=== PATIENT | female | born 1965 | race Hispanic/Latino ===

== ENCOUNTER 2017-08-21 11:26 | Emergency (ER) | payer MEDICAID ==
[2017-08-21 11:41] VITALS: BP 134/74
== END 2017-08-21 12:18 | disposition left against medical advice (07) ==
LOC: ED 11:26
DX: J02.9 Acute pharyngitis, unspecified (principal); Z53.21 Procedure and treatment not carried out due to patient leaving prior to being seen by health care provider

== ENCOUNTER 2017-12-25 22:49 | Inpatient (IN) | payer MEDICAID ==
[2017-12-26 00:38] LABS: Basophils % (Auto) 0.6 % (0.0-1.8); Eosinophils # (Auto) 0.3 K/mm3 (0.0-0.4); Eosinophils % (Auto) 3.6 % (0.0-4.3); Hematocrit 33.6 % (30.3-42.9); Hemoglobin 12.1 gm/dl (10.1-14.3); Lymphocytes # (Auto) 3.7 K/mm3 (1.2-5.4); Lymphocytes % (Auto) 46.6 % (13.4-35.0); Mean Corpuscular HGB Conc 36 % (30-34); Mean Corpuscular Hemoglobin 30 pg (28-32); Mean Corpuscular Volume 83 fl (79-97); Monocytes # (Auto) 0.6 K/mm3 (0.0-0.8); Monocytes % (Auto) 8.1 % (0.0-7.3); Platelet Count 334 K/mm3 (140-440); Red Blood Count 4.08 M/mm3 (3.65-5.03); Red Cell Distribution Width 14.8 % (13.2-15.2)
--- NOTE | 2017-12-26 00:48 | Cat Scan Report ---
FINAL REPORT PROCEDURE: CT HEAD/BRAIN WO CON TECHNIQUE: Computerized tomography of the head was performed without contrast material. HISTORY: neuro deficits < 6hrs or sx present upon awakening COMPARISON: No prior studies are available for comparison. FINDINGS: Skull and scalp: Normal. Paranasal sinuses: Normal. Ventricles and subarachnoid spaces: Normal. Cerebrum: No evidence of hemorrhage, acute infarction or mass . Cerebellum and brainstem: No evidence of hemorrhage, acute infarction or mass. Vasculature: Normal. Comments: None. IMPRESSION: There is no evidence of an acute intracranial process
[2017-12-26 00:49] LABS: INR 0.89 (0.87-1.13); Partial Thromboplastin Time 28.9 Sec. (24.2-36.6)
[2017-12-26 00:51] LABS: BUN/Creatinine Ratio 9; Blood Urea Nitrogen 9 mg/dL (7-17); Calcium 8.8 mg/dL (8.4-10.2); Hemolysis Index 2
--- NOTE | 2017-12-26 00:59 | Emergency Department Report ---
- General Chief complaint: Chest Pain Stated complaint: HEAD/NECK/CHEST PAIN Time Seen by Provider: 12/26/17 00:35 Source: patient, EMS Mode of arrival: Ambulatory Limitations: No Limitations - History of Present Illness Initial comments: She is a 52-year-old female that presents emergency room with chest pain 1 hour. Patient also reports having numbness tingling in both arms and legs. Patient states she is also having a bad headache. Patient states she lost the ability to speak for approximately 45-50 minutes. Patient states her blood pressure really high school and on and she took a blood pressure medication and her ability to speak and back. Patient denies nausea and vomiting and shortness of breath. Patient states the chest pain is a pressure in her central chest and non-radiating. Patient states chest pain and headache are better with rest and worse with exertion. Patient states that she never lost ability to move her arms and legs. MD Complaint: generalized weakness -: Sudden - Related Data Allergies Allergy/AdvReac Type Severity Reaction Status Date / Time Sulfa (Sulfonamide Allergy Shortness Verified 08/21/17 11:36 Antibiotics) of Breath sulfamethoxazole Allergy Unknown Verified 12/25/17 23:42 [From Bactrim] trimethoprim [From Bactrim] Allergy Unknown Verified 12/25/17 23:42 ED Review of Systems ROS: Stated complaint: HEAD/NECK/CHEST PAIN Other details as noted in HPI Constitutional: denies: chills, fever Eyes: denies: eye pain, eye discharge, vision change ENT: denies: ear pain, throat pain Respiratory: denies: cough, shortness of breath, wheezing Cardiovascular: chest pain. denies: palpitations Endocrine: no symptoms reported Gastrointestinal: denies: abdominal pain, nausea, diarrhea Genitourinary: denies: urgency, dysuria, discharge Musculoskeletal: denies: back pain, joint swelling, arthralgia Skin: denies: rash, lesions Neurological: headache. denies: weakness, paresthesias Psychiatric: denies: anxiety, depression Hematological/Lymphatic: denies: easy bleeding, easy bruising ED Past Medical Hx - Past Medical History Previous Medical History?: Yes Hx Headaches / Migraines: Yes Hx Psychiatric Treatment: Yes (Bipolar) Additional medical history: MRSA, Speech impairment, stomach ulcers - Surgical History Past Surgical History?: Yes Additional Surgical History: Tonsil removed, Tubaligation, right Carpel tunnel; surgery - Family History Family history: hypertension - Social History Smoking Status: Current Every Day Smoker Substance Use Type: None ED Physical Exam - General Limitations: No Limitations General appearance: alert, in no apparent distress - Head Head exam: Present: atraumatic, normocephalic - Eye Eye exam: Present: normal appearance - ENT ENT exam: Present: mucous membranes moist - Neck Neck exam: Present: normal inspection - Respiratory Respiratory exam: Present: normal lung sounds bilaterally. Absent: respiratory distress - Cardiovascular Cardiovascular Exam: Present: regular rate, normal rhythm. Absent: systolic murmur, diastolic murmur, rubs, gallop - GI/Abdominal GI/Abdominal exam: Present: soft, normal bowel sounds - Extremities Exam Extremities exam: Present: normal inspection - Back Exam Back exam: Present: normal inspection - Neurological Exam Neurological exam: Present: alert, oriented X3 - Psychiatric Psychiatric exam: Present: normal affect, normal mood - Skin Skin exam: Present: warm, dry, intact, normal color. Absent: rash - Assessment Assessment Interval: Baseline - Level of Consciousness 1a. Level of Consciousness: alert - LOC Questions 1b. LOC Questions: answers correctly - LOC Command 1c. LOC Commands: performs tasks correctly - Best Gaze 2. Best Gaze: normal - Visual 3. Visual: no visual loss - Facial Palsy 4. Facial Palsy: normal symmetrical movement - Motor Arm 5b. Motor Arm Right: no drift 5a. Motor Arm Left: no drift - Motor Leg 6a. Motor Leg Left: no drift 6b. Motor Leg Right: no drift - Limb Ataxia 7. Limb Ataxia: absent - Sensory 8. Sensory: normal - Best Language 9. Best Language: no aphasia - Dysarthria 10. Dysarthria: normal - Extinction and Inattention 11. Extinction/Inattention: no abnormality - Scoring Total Score: 0 Stroke Severity: No Stroke Symptoms ED Course Vital Signs 12/25/17 12/26/17 12/26/17 23:49 00:48 01:01 Temperature 97.9 F Pulse Rate 70 59 L 57 L Respiratory 20 14 12 Rate Blood Pressure 139/70 O2 Sat by Pulse 100 98 Oximetry 12/26/17 12/26/17 12/26/17 01:15 01:31 01:45 Temperature Pulse Rate 58 L 58 L 56 L Respiratory 10 L 13 15 Rate Blood Pressure 128/93 110/47 112/46 O2 Sat by Pulse 97 97 96 Oximetry 12/26/17 12/26/17 12/26/17 02:01 02:15 02:31 Temperature Pulse Rate 51 L 68 51 L Respiratory 12 13 15 Rate Blood Pressure 107/44 95/55 102/79 O2 Sat by Pulse 99 98 99 Oximetry 12/26/17 12/26/17 12/26/17 03:55 04:01 04:11 Temperature Pulse Rate 60 60 58 L Respiratory 12 11 L 14 Rate Blood Pressure 116/74 110/66 116/74 O2 Sat by Pulse 100 99 99 Oximetry 12/26/17 12/26/17 04:21 04:31 Temperature Pulse Rate 59 L 60 Respiratory 14 13 Rate Blood Pressure 113/63 113/63 O2 Sat by Pulse 98 98 Oximetry - Reevaluation(s) Reevaluation #1: Exam documented. Patient sent to CT for stat CT of head. 12/26/17 00:35 Reevaluation #2: CT head negative. We'll consult tele neuro. per clinical exam, the patient is not a candidate for TPA 12/26/17 00:43 Reevaluation #3: Discussed case with neurologist. Dr. Brenner agrees with plan of care that the patient is not a candidate for TPA, however recommends admission to the hospital and MRI 12/26/17 01:55 - Consultations Consultation #1: Hospitalist consulted for admission. Dr. Palm to admit patient. Dr. Palm to assume care. 12/26/17 02:34 ED Medical Decision Making - Lab Data Result diagrams: 12/26/17 00:28 12/26/17 00:28 - EKG Data -: EKG Interpreted by [facility] EKG shows normal: sinus rhythm, axis, intervals, QRS complexes, ST-T waves Rate: bradycardia - Radiology Data Radiology results: report reviewed nad on head ct. - Medical Decision Making Patient is a 52-year-old female that presents emergency room with complaints of chest pain and inability to speak. All symptoms have resolved on patient. Neurologist consulted and recommends admission to the hospital and at MRI. Patient to be admitted to the hospitalist service for further evaluation and treatment. - Differential Diagnosis cp. acs. tia. htn. vázquez. migraine. Critical Care Time: Yes Critical care attestation.: If time is entered above; I have spent that time in minutes in the direct care of this critically ill patient, excluding procedure time. Critical Care Time: 45 minutes for cc time. ED Disposition Clinical Impression: Weakness, TIA (transient ischemic attack) Headache Qualifiers: Headache type: unspecified Headache chronicity pattern: acute headache Intractability: not intractable Qualified Code(s): R51 - Headache Chest pain Qualifiers: Chest pain type: unspecified Qualified Code(s): R07.9 - Chest pain, unspecified Disposition: 09 OP ADMIT IP TO THIS HOSP Is pt being admited?: Yes Does the pt Need Aspirin: No Condition: Critical Time of Disposition: 02:35
[2017-12-26] MEDS ORDERED: ASPIRIN PO ONE (01:17)
--- NOTE | 2017-12-26 03:13 | History and Physical Report ---
History of Present Illness Date of examination: 12/26/17 History of present illness: 52-year-old woman with history of hypertension comes emergency room because she developed numbness on the arms, left leg and aphasia. When she arrived in the emergency room she started speaking but her speech is slurred Review of systems Constitutional: no weight loss, chills, fever Ears, eyes, nose, mouth and throat: no nasal congestion, no nasal discharge, no sinus pressure, no vision change, no red eye. Neck: No neck pain or rigidity. Cardiovascular: no chest pain, palpitations Respiratory: no cough, shortness of breath Gastrointestinal: no abdominal pain hematochezia Genitourinary : no frequency , no hematuria Musculoskeletal: no joint swelling or muscle ache Integumentary: no rash, no pruritis Neurological: no focal weakness Endocrine: no cold or heat intolerance, no polyuria or polydipsia Hematologic/Lymphatic: no easy bruising, no easy bleeding, no gland swelling Allergic/Immunologic: no urticaria, no angioedema. PAST MEDICAL HISTORY: Hypertension PAST SURGICAL HISTORY: Tubal ligation, carpal tunnel release, tonsillectomy SOCIAL HISTORY: No alcohol, no drugs, smokes FAMILY HISTORY: Hypertension Medications and Allergies Allergies Allergy/AdvReac Type Severity Reaction Status Date / Time Sulfa (Sulfonamide Allergy Shortness Verified 08/21/17 11:36 Antibiotics) of Breath sulfamethoxazole Allergy Unknown Verified 12/25/17 23:42 [From Bactrim] trimethoprim [From Bactrim] Allergy Unknown Verified 12/25/17 23:42 Exam - Physical Exam Narrative exam: Gen. appearance: Patient lying in bed, no apparent distress HEENT: Normocephalic, atraumatic, pupils equally round and reactive to light, extraocular movement intact, and no sclericterus,. No JVD or thyromegaly or nodule,neck supple, no carotid bruit ,mucous membranes moist, no exudate or erythema Heart: S1, S2, regular rate and rhythm Lungs: Clear bilaterally, breathing comfortable Abdomen: Positive bowel sounds, non-tender, nondistended, no organomegaly Extremity:no edema cyanosis, clubbing Skin: no rash, dry, warm Neuro: Oriented 3, cranial nerves II-12 intact, speech is slurred, motor and sensory intact - Constitutional Vitals: Temp Pulse Resp BP Pulse Ox 97.9 F 51 L 15 102/79 99 12/25/17 23:49 12/26/17 02:31 12/26/17 02:31 12/26/17 02:31 12/26/17 02:31 Results - Labs CBC & Chem 7: 12/26/17 00:28 12/26/17 00:28 Labs: Abnormal lab results 12/26/17 12/26/17 Range/Units 00:28 00:28 MCHC 36 H (30-34) % Lymph % (Auto) 46.6 H (13.4-35.0) % [place] % (Auto) 8.1 H (0.0-7.3) % Glucose 112 H (65-100) mg/dL - Imaging and Cardiology CT Scan - head: report reviewed Assessment and Plan Assessment Acute CVA Hypertension Plan Admit medicine Obtain MRI of the head, carotid Doppler, echo Do neuro checks, swallow screen Start aspirin, statin Albuterol as needed for blood pressure check Consult neurology, physical and occupational therapy DVT prophylaxis
[2017-12-26] MEDS ORDERED: DULCOLAX PR PRN (05:31)
[2017-12-26] MEDS ORDERED: APRESOLINE IV PRN (05:31)
[2017-12-26] MEDS ORDERED: ZOFRAN IV PRN (05:31)
[2017-12-26] MEDS ORDERED: MILK OF MAGNESIA PO PRN (05:31)
[2017-12-26] MEDS ORDERED: SODIUM CHLORIDE FLUSH SYRINGE 10 ML IV PRN (05:31)
[2017-12-26] MEDS: NACL 0.9% 1000 ML 1,000 ML IV SCH ×2 (06:21→17:50)
--- NOTE | 2017-12-26 09:50 | Event Note ---
Date: 12/26/17 Patient with slurred speech, left arm numbness. MRI Brain negative. Neurology to see.
[2017-12-26] MEDS ORDERED: LOVENOX SUB-Q SCH (10:00)
[2017-12-26] MEDS: ASPIRIN PO SCH (10:00)
[2017-12-26] MEDS: LOVENOX SUB-Q SCH (11:42)
--- NOTE | 2017-12-26 12:07 | Magnetic Resonance Report ---
FINAL REPORT EXAM: MR BRAIN WO CON HISTORY: stroke COMPARISON: CT of the head performed on 12/25/2017 TECHNIQUE: Multiplanar and multisequential imaging of the brain was performed without administration of IV contrast FINDINGS: There is normal brain volume for the patient's age. There is normal meza-white differentiation. There is no parenchymal hemorrhage or extra-axial fluid collection. There is no mass or mass effect. There is no restricted diffusion to suggest acute infarct. The ventricles are midline and are not enlarged. The subarachnoid spaces and basilar cisterns are clear. There is normal signal of the bony calvarium and the soft tissues of the scalp. The bilateral orbits are intact. IMPRESSION: No acute intracranial abnormality.
[2017-12-26 13:37] LABS: Chol/HDL Ratio 3.86 %
--- NOTE | 2017-12-26 14:19 | Consultation ---
History of Present Illness Consult date: 12/26/17 History of present illness: notes reveal she had slurring of speech and left arm numbness the MRI is normal neuro exam is normal except c/o headaches suspect she has speech impediment chronic await Carotid u/s and ECHO TIA w[u is pending Thanks will follow up explained w/u to the patient Medications and Allergies Allergies Allergy/AdvReac Type Severity Reaction Status Date / Time Sulfa (Sulfonamide Allergy Shortness Verified 08/21/17 11:36 Antibiotics) of Breath sulfamethoxazole Allergy Unknown Verified 12/25/17 23:42 [From Bactrim] trimethoprim [From Bactrim] Allergy Unknown Verified 12/25/17 23:42 Active Meds: Active Medications Acetaminophen (Tylenol) 650 mg PO Q4H PRN PRN Reason: Pain, Mild (1-3) Aspirin (Aspirin) 325 mg PO QDAY [facility] Last Admin: 12/26/17 10:00 Dose: Not Given Atorvastatin Calcium (Lipitor) 40 mg PO QHS HANNAH Bisacodyl (Dulcolax) 10 mg AR QDAY PRN PRN Reason: Constipation Enoxaparin Sodium (Lovenox) 40 mg SUB-Q QDAY@1000 [facility] Last Admin: 12/26/17 11:42 Dose: 40 mg Hydralazine HCl (Apresoline) 5 mg IV Q6H PRN PRN Reason: Keep SBP between 160-185 mm Hg Sodium Chloride (Nacl 0.9% 1000 Ml) 1,000 mls @ 150 mls/hr IV DIRECT [facility] Last Admin: 12/26/17 06:21 Dose: 150 mls/hr Magnesium Hydroxide (Milk Of Magnesia) 30 ml PO Q4H PRN PRN Reason: Constipation Ondansetron HCl (Zofran) 4 mg IV Q8H PRN PRN Reason: Nausea And Vomiting Sodium Chloride (Sodium Chloride Flush Syringe 10 Ml) 10 ml IV PRN PRN PRN Reason: LINE FLUSH Physical Examination - Vital Signs Vital Signs: Vital Signs Temp Pulse Resp BP Pulse Ox 97.9 F 70 20 139/70 100 12/25/17 23:49 12/25/17 23:49 12/25/17 23:49 12/25/17 23:49 12/25/17 23:49 - Assessment Assessment Interval: Baseline - Level of Consciousness 1a. Level of Consciousness: alert - LOC Questions 1b. LOC Questions: answers correctly - LOC Command 1c. LOC Commands: performs tasks correctly - Best Gaze 2. Best Gaze: normal - Visual 3. Visual: no visual loss - Facial Palsy 4. Facial Palsy: normal symmetrical movement - Motor Arm 5b. Motor Arm Right: no drift - Motor Leg 6a. Motor Leg Left: no drift - Limb Ataxia 7. Limb Ataxia: absent - Sensory 8. Sensory: normal - Best Language 9. Best Language: no aphasia - Dysarthria 10. Dysarthria: normal - Extinction and Inattention 11. Extinction/Inattention: no abnormality Results - Laboratory Findings CBC and BMP: 12/26/17 00:28 12/26/17 00:28 Abnormal Lab Findings: Abnormal Labs 12/26/17 12/26/17 12/26/17 00:28 00:28 12:01 MCHC 36 H Lymph % (Auto) 46.6 H [place] % (Auto) 8.1 H Glucose 112 H Cholesterol 224 H LDL Cholesterol Direct 172 H
[2017-12-26] MEDS: TYLENOL PO PRN (17:49)
[2017-12-26] MEDS ORDERED: PRAVACHOL PO SCH (22:00)
[2017-12-27] MEDS: TYLENOL PO PRN (05:00)
[2017-12-27] MEDS: NACL 0.9% 1000 ML 1,000 ML IV SCH (06:31)
--- NOTE | 2017-12-27 08:31 | Progress Note ---
Subjective Date of service: 12/27/17 Interval history: see my dictated note the patient I suspect has complicated migraine doubt stroke based on ECHO and MRI results BP's have been normal Objective - Vital Sign Vital Signs - 12hr 12/26/17 12/26/17 12/27/17 22:44 23:29 04:12 Temperature 98.1 F 98.2 F Pulse Rate 57 L 67 Respiratory 18 18 Rate Blood Pressure 118/52 125/78 O2 Sat by Pulse 98 97 99 Oximetry - Laboratory Findings CBC and BMP: 12/26/17 00:28 12/26/17 00:28 Abnormal Lab Findings: Abnormal Labs 12/26/17 12/26/17 12/26/17 00:28 00:28 12:01 MCHC 36 H Lymph % (Auto) 46.6 H [place] % (Auto) 8.1 H Glucose 112 H POC Glucose Cholesterol 224 H LDL Cholesterol Direct 172 H 12/26/17 12/26/17 15:59 21:54 MCHC Lymph % (Auto) [place] % (Auto) Glucose POC Glucose 107 H 110 H Cholesterol LDL Cholesterol Direct
[2017-12-27] MEDS ORDERED: FIORICET PO PRN (08:59)
[2017-12-27] MEDS: LOVENOX SUB-Q SCH (10:55)
[2017-12-27] MEDS: ASPIRIN PO SCH (10:55)
--- NOTE | 2017-12-27 12:29 | Consultation ---
ROOM NUMBER: [id number] HISTORY OF PRESENT ILLNESS: This is a 52-year-old white female that presents to [facility] on 12/24/2017. This patient initially presented to the hospital Emergency Room with complaints of numbness and weakness in both arms and legs. She stated that she was having severe headache and loss of ability to speak for approximately 45-50 minutes. Her blood pressure was initially elevated although in presentation in the Emergency Room, review of the blood pressures on 12/25/2017 and 12/26/2017 indicated they are all within the normal range. She had a CT scan of the head, which was negative. The patient was admitted to the hospital subsequently with continued complaints of chest pain and inability to speak. By the time I have seen the patient, review of the electrolytes were unremarkable. Glucose was 112, hematocrit 33.6. Her pO2 was 98%. She was alert, appropriate. Speech was clear, although she did have to me a speech impediment with slurring of speech, which is typical for inarticulate speech as opposed to aphasia. She has symmetrical head and neck movements, symmetrical facial movements. No drift to extremities. She does complain of a slight headache at present time. I do not find any focal motor weakness in the arms or legs. I did review her MRI scan of the brain, it is unremarkable. I have also reviewed her echocardiogram, which shows a normal ejection fraction of 55-60%, ventricular systolic function is good. I would comment that there appears to be very mild tricuspid valve regurgitation. The other changes in the ___ echocardiogram is normal. IMPRESSION: I am inclined to think this patient's problems are related to migraine. She had a headache. She has this patchy numbness, which comes and goes in her arms and legs, although objectively there is nothing on examination, which points this being a hard finding. I do not find any focal motor weakness. Her dysarthric speech I believe is preexisting speech inarticulation as opposed to aphasia, but more detailed history from family might be useful if there has been some change. I do not see anything on the MRI scan and carotid artery ultrasound has not been yet interpreted. We will get an EEG on the patient, also sed rate. JOB# [id number] ISHA/NTS
[2017-12-27 12:31] VITALS: BP 130/78
--- NOTE | 2017-12-27 14:58 | Discharge Summary ---
Providers - Providers Date of Admission: 12/26/17 03:12 Date of discharge: 12/27/17 Attending physician: LUTHER KWON 12/26/17 Consult to Physician [CONS] Routine Comment: Consulting Provider: CHIKA MITTAL Physician Instructions: Reason For Exam: tia/cva 12/26/17 05:31 Occupational Therapy Evaluate and Treat [CONS] Routine Comment: Reason For Exam: Neuro deficits Physical Therapy Evaluation and Treat [CONS] Routine Comment: Reason For Exam: Neuro deficits 12/27/17 08:03 Speech Therapy Evaluation and Treat [CONS] Routine Reason For Exam: dysartria Primary care physician: [facility] Hospitalization Condition: Fair Disposition: DC-01 TO HOME OR SELFCARE Core Measure Documentation - Palliative Care Palliative Care/ Comfort Measures: Not Applicable - Core Measures Any of the following diagnoses?: none Exam - Constitutional Vitals: Temp Pulse Resp BP Pulse Ox 97.9 F 55 L 20 130/78 97 12/27/17 11:40 12/27/17 11:40 12/27/17 11:40 12/27/17 11:40 12/27/17 11:40 Plan Activity: advance as tolerated Diet: low fat, low cholesterol, low salt Additional Instructions: 1.Follow up with PCP in 1 week. 2.Follow up with Neurology, Dr. Mittal in 1 week. 3.Outpatient speech therapy Follow up with: PRIMARY CARE, [Primary Care Provider] - 7 Days Prescriptions: AtorvaSTATin [Lipitor] 40 mg PO QHS #30 tablet Butalb/Acetamin/Caff 50-325-40 [Fioricet] 1 tab PO Q4H PRN #20 tablet PRN Reason: Headache Famotidine [Pepcid] 20 mg PO BID #30 tablet
--- NOTE | 2017-12-28 11:45 | Vascular Lab Report ---
CAROTID DUPLEX STUDY: RIGHT PSVEDV CCA PROX:[id number] CCA DIST:8728 ICA PROX:8227 ICA MID:9428 ICA DIST:9541 ECA: 94 VERT: 54 24 LEFT PSVEDV CCA PROX:[id number] CCA DIST:8330 ICA PROX:8832 ICA MID:[id number] ICA DIST:9138 ECA: 74 VERT: 49 20 REASON FOR EXAM: Stroke. COMMENTS ON THE RIGHT: Doppler frequency analysis is consistent with 16 to 49 percent diameter reduction of the internal carotid artery. Minimal amount of plaque is seen. The common carotid artery is patent. The external carotid artery is patent. The vertebral artery has antegrade flow. COMMENTS ON THE LEFT: Doppler frequency analysis is consistent with 16 to 49 percent diameter reduction of the internal carotid artery. Minimal amount of plaque is seen. The common carotid artery is patent. The external carotid artery is patent. The vertebral artery has antegrade flow. IMPRESSION: Less than 50% diameter reduction in the internal carotid arteries bilaterally.
== END 2017-12-27 17:02 | disposition home or self-care (01) | DRG 103 ==
LOC: ED 22:49 → 4A 12-26 03:12
PROVIDERS: ADMIT Internal Medicine; ATTEND Internal Medicine
DX: G43.909 Migraine, unspecified, not intractable, without status migrainosus (principal); F17.200 Nicotine dependence, unspecified, uncomplicated; R07.9 Chest pain, unspecified; F31.9 Bipolar disorder, unspecified; G45.9 Transient cerebral ischemic attack, unspecified; Z88.2 Allergy status to sulfonamides; Z88.1 Allergy status to other antibiotic agents; Z90.49 Acquired absence of other specified parts of digestive tract; Z90.89 Acquired absence of other organs; Z98.51 Tubal ligation status; Z82.49 Family history of ischemic heart disease and other diseases of the circulatory system
CPT/HCPCS: 36415; 70450; 70551; 80048; 80061; 82962; 84484; 84703; 85025; 85610; 85730; 93005; 93010; 93306; 93880; 99291; 99406; A9270-GY; J1650; J2405; J7030

== ENCOUNTER 2018-01-11 19:15 | Emergency (ER) | payer MEDICAID ==
[2018-01-11 20:45] LABS: Basophils # (Auto) 0.1 K/mm3 (0.0-0.1); Basophils % (Auto) 0.9 % (0.0-1.8); Eosinophils # (Auto) 0.2 K/mm3 (0.0-0.4); Eosinophils % (Auto) 2.5 % (0.0-4.3); Hematocrit 37.6 % (30.3-42.9); Hemoglobin 12.8 gm/dl (10.1-14.3); Lymphocytes # (Auto) 2.9 K/mm3 (1.2-5.4); Mean Corpuscular HGB Conc 34 % (30-34); Mean Corpuscular Hemoglobin 29 pg (28-32); Mean Corpuscular Volume 85 fl (79-97); Monocytes # (Auto) 0.6 K/mm3 (0.0-0.8); Monocytes % (Auto) 7.7 % (0.0-7.3); Platelet Count 250 K/mm3 (140-440); Red Blood Count 4.44 M/mm3 (3.65-5.03); Red Cell Distribution Width 14.7 % (13.2-15.2)
[2018-01-11 20:54] LABS: BUN/Creatinine Ratio 11; Blood Urea Nitrogen 10 mg/dL (7-17); Calcium 9.5 mg/dL (8.4-10.2); Hemolysis Index 12
--- NOTE | 2018-01-11 21:20 | Cat Scan Report ---
FINAL REPORT EXAM: CT HEAD/BRAIN WO CON HISTORY: right arm numbess recent CVa TECHNIQUE: 2.5 millimeter axial images from the skullbase to the vertex. Comparison: MRI brain dated December 26, [address] dated December 26, 2017 FINDINGS: There is no evidence of an acute intracranial process, intracranial hemorrhage or mass effect. The ventricles are normal size. The visualized portions of the orbits, paranasal and mastoid sinuses are unremarkable. The bony structures are unremarkable in appearance. IMPRESSION: 1. No evidence of an acute intracranial process, intracranial hemorrhage or mass effect. If there is a clinical suspicion of acute cerebral ischemia, MRI brain would be helpful.
[2018-01-11 21:58] LABS: Alanine Aminotransferase 12 units/L (7-56); Albumin 4.3 g/dL (3.9-5)
[2018-01-11 21:59] LABS: Bilirubin,Direct < 0.2 mg/dL (0-0.2)
--- NOTE | 2018-01-11 22:05 | Emergency Department Report ---
ED Neuro Deficit HPI - General Chief Complaint: Neuro Symptoms/Deficit Stated Complaint: RT ARM NUMBNESS Time Seen by Provider: 01/11/18 20:06 Source: patient, EMS Mode of arrival: Ambulatory Limitations: No Limitations - History of Present Illness Initial Comments: He is a 52-year-old female who is presenting with right arm numbness that has been off and on for the past 3 days. Patient states that earlier this month she was admitted for possible stroke. A review of the patient's past medical history the patient was admitted on 12/26/2017 and had a headache elevated blood pressure chest pain and was unable to speak for approximately 50 minutes prior to arrival. Patient states she took her blood pressure medicines and then was able to speak again. Patient was admitted to the hospital had a MRI that was normal NIH was 0 and the neurology consult stated the patient most likely has compensated migraines as opposed to CVA. Patient also had carotid Dopplers which were within normal limits as well. Patient today states that she has no weakness in arms or legs she just feels a numb sensation. Patient is complaining of right-sided headache as well. Patient states the headache is a 67 out of 10 in severity and pounding. - Related Data Home Medications: Previous Rx's Medication Instructions Recorded Last Taken Type AtorvaSTATin [Lipitor] 40 mg PO QHS #30 tablet 12/27/17 Unknown Rx Butalb/Acetamin/Caff 50-325-40 1 tab PO Q4H PRN #20 tablet 12/27/17 Unknown Rx [Fioricet] Famotidine [Pepcid] 20 mg PO BID #30 tablet 12/27/17 Unknown Rx Nicotine [Habitrol] 21 mg TD DAILY 30 Days patch 12/27/17 Unknown Rx Butalb/Acetamin/Caff 50-325-40 1 tab PO Q6HR PRN #10 tab 01/11/18 Unknown Rx [Fioricet] Allergies/Adverse Reactions: Allergies Allergy/AdvReac Type Severity Reaction Status Date / Time Sulfa (Sulfonamide Allergy Shortness Verified 08/21/17 11:36 Antibiotics) of Breath sulfamethoxazole Allergy Unknown Verified 12/25/17 23:42 [From Bactrim] trimethoprim [From Bactrim] Allergy Unknown Verified 12/25/17 23:42 ED Review of Systems ROS: Stated complaint: RT ARM NUMBNESS Other details as noted in HPI Comment: All other systems reviewed and negative ED Past Medical Hx - Past Medical History Previous Medical History?: Yes Hx Hypertension: Yes Hx Headaches / Migraines: Yes Hx Psychiatric Treatment: Yes (Bipolar) Additional medical history: MRSA, Speech impairment, stomach ulcers - Surgical History Past Surgical History?: Yes Additional Surgical History: Tonsil removed, Tubal ligation 1998, right Carpel tunnel; surgery - Social History Smoking Status: Current Every Day Smoker Substance Use Type: None - Medications Home Medications: Home Medications Medication Instructions Recorded Confirmed Last Taken Type AtorvaSTATin [Lipitor] 40 mg PO QHS #30 tablet 12/27/17 Unknown Rx Butalb/Acetamin/Caff 50-325-40 1 tab PO Q4H PRN #20 tablet 12/27/17 Unknown Rx [Fioricet] Famotidine [Pepcid] 20 mg PO BID #30 tablet 12/27/17 Unknown Rx Nicotine [Habitrol] 21 mg TD DAILY 30 Days patch 12/27/17 Unknown Rx Butalb/Acetamin/Caff 50-325-40 1 tab PO Q6HR PRN #10 tab 01/11/18 Unknown Rx [Fioricet] ED Neuro Physical Exam - General Limitations: No Limitations General appearance: alert, in no apparent distress Suspected Stroke: No - Head Head exam: Present: atraumatic, normocephalic - Eye Eye exam: Present: normal appearance - ENT ENT exam: Present: mucous membranes moist - Neck Neck exam: Present: normal inspection - Respiratory Respiratory exam: Present: normal lung sounds bilaterally. Absent: respiratory distress, wheezes, rales, rhonchi - Cardiovascular Cardiovascular Exam: Present: regular rate, normal rhythm. Absent: systolic murmur, diastolic murmur, rubs, gallop - GI/Abdominal GI/Abdominal exam: Present: soft, normal bowel sounds. Absent: distended, tenderness, guarding, rebound - Extremities Exam Extremities exam: Present: normal inspection - Back Exam Back exam: Present: normal inspection - Neurological Exam Neurological exam: Present: alert, oriented X3, CN II-XII intact, other (agents speaks with a lisp at baseline and does see a speech pathologist) - NIHSS Assessment Interval: Baseline 1a. Level of Consciousness: alert 1b. LOC Questions: answers correctly 1c. LOC Commands: performs tasks correctly 2. Best Gaze: normal 3. Visual: no visual loss 4. Facial Palsy: normal symmetrical movement 5b. Motor Arm Right: no drift 5a. Motor Arm Left: no drift 6a. Motor Leg Left: no drift 6b. Motor Leg Right: no drift 7. Limb Ataxia: absent 8. Sensory: normal 9. Best Language: no aphasia 10. Dysarthria: normal 11. Extinction/Inattention: no abnormality Total Score: 0 Stroke Severity: No Stroke Symptoms - Psychiatric Psychiatric exam: Present: normal affect, normal mood - Skin Skin exam: Present: warm, dry, intact, normal color. Absent: rash ED Course Vital Signs 01/11/18 19:53 Temperature 98 F Pulse Rate 57 L Respiratory 18 Rate Blood Pressure 125/66 O2 Sat by Pulse 98 Oximetry - Lab Data Result diagrams: 01/11/18 20:35 01/11/18 20:35 Lab Results 01/11/18 01/11/18 01/11/18 Range/Units 20:35 20:35 20:35 WBC 7.3 (4.5-11.0) K/mm3 RBC 4.44 (3.65-5.03) M/mm3 Hgb 12.8 (10.1-14.3) gm/dl Hct 37.6 (30.3-42.9) % MCV 85 (79-97) fl MCH 29 (28-32) pg MCHC 34 (30-34) % RDW 14.7 (13.2-15.2) % Plt Count 250 (140-440) K/mm3 Lymph % (Auto) 39.0 H (13.4-35.0) % [place] % (Auto) 7.7 H (0.0-7.3) % Eos % (Auto) 2.5 (0.0-4.3) % Baso % (Auto) 0.9 (0.0-1.8) % Lymph # 2.9 (1.2-5.4) K/mm3 [place] # 0.6 (0.0-0.8) K/mm3 Eos # 0.2 (0.0-0.4) K/mm3 Baso # 0.1 (0.0-0.1) K/mm3 Seg Neutrophils % 49.9 (40.0-70.0) % Seg Neutrophils # 3.7 (1.8-7.7) K/mm3 Sodium 142 (137-145) mmol/L Potassium 3.8 (3.6-5.0) mmol/L Chloride 104.9 (98-107) mmol/L Carbon Dioxide 23 (22-30) mmol/L Anion Gap 18 mmol/L BUN 10 (7-17) mg/dL Creatinine 0.9 (0.7-1.2) mg/dL Estimated GFR > 60 ml/min BUN/Creatinine Ratio 11 % Glucose 101 H (65-100) mg/dL Calcium 9.5 (8.4-10.2) mg/dL Total Bilirubin 0.20 (0.1-1.2) mg/dL Direct Bilirubin < 0.2 (0-0.2) mg/dL Indirect Bilirubin 0.0 mg/dL AST 13 (5-40) units/L ALT 12 (7-56) units/L Alkaline Phosphatase 50 (35-129) units/L Total Protein 6.9 (6.3-8.2) g/dL Albumin 4.3 (3.9-5) g/dL Albumin/Globulin Ratio 1.7 % - Radiology Data CT of the head shows no acute process Critical care attestation.: If time is entered above; I have spent that time in minutes in the direct care of this critically ill patient, excluding procedure time. ED Disposition Clinical Impression: Complicated migraine Disposition: DC-01 TO HOME OR SELFCARE Is pt being admited?: No Does the pt Need Aspirin: No Condition: Stable Instructions: Migraine Headache (ED) Prescriptions: Butalb/Acetamin/Caff 50-325-40 [Fioricet] 1 tab PO Q6HR PRN #10 tab PRN Reason: Headache Referrals: PRIMARY CARE, [Primary Care Provider] - 3-5 Days Time of Disposition: 22:05
[2018-01-12 00:04] VITALS: BP 114/73
== END 2018-01-11 22:40 | disposition home or self-care (01) ==
LOC: ED 19:15
DX: G43.109 Migraine with aura, not intractable, without status migrainosus (principal); I10 Essential (primary) hypertension; F31.9 Bipolar disorder, unspecified; F17.200 Nicotine dependence, unspecified, uncomplicated; Z88.2 Allergy status to sulfonamides; Z98.51 Tubal ligation status; Z90.89 Acquired absence of other organs
CPT/HCPCS: 36415; 70450; 80048; 80074; 85025; 99284

== ENCOUNTER 2018-01-12 01:02 | Emergency (ER) | payer MEDICAID ==
[2018-01-12 04:41] LABS: BUN/Creatinine Ratio 10; Blood Urea Nitrogen 9 mg/dL (7-17); Calcium 9.5 mg/dL (8.4-10.2); Hemolysis Index 15
--- NOTE | 2018-01-12 07:41 | Emergency Department Report ---
HPI - General Chief Complaint: Psych Time Seen by Provider: 01/12/18 07:27 - HPI HPI: Room 9 The patient is a 52-year-old female presenting with chief complaint of suicidal ideation. The patient has had multiple deaths in her family over the past 6 months including her mother who passed 3 weeks ago. Patient states she's had suicidal ideation for one week. Patient states her plan was to overdose on pills but she denies any active attempts. The patient admits 17 years ago she did attempt suicide by cutting her wrists and taking pills. Location: Mental state Duration: One week Quality: Suicidal Severity: Severe Modifying factors: [see above] Context: [see above] Mode of transportation: [not driving] ED Past Medical Hx - Past Medical History Hx Hypertension: Yes Hx CVA: Yes Hx Headaches / Migraines: Yes Hx Psychiatric Treatment: Yes (Bipolar) Additional medical history: MRSA, Speech impairment, stomach ulcers - Surgical History Past Surgical History?: No Additional Surgical History: Tonsil removed, Tubal ligation 1998, right Carpel tunnel; surgery - Family History Family history: no significant - Social History Smoking Status: Current Every Day Smoker (approximately one pack per day) Substance Use Type: None (denies illicit drug use) - Medications Home Medications: Home Medications Medication Instructions Recorded Confirmed Last Taken Type AtorvaSTATin [Lipitor] 40 mg PO QHS #30 tablet 12/27/17 Unknown Rx Butalb/Acetamin/Caff 50-325-40 1 tab PO Q4H PRN #20 tablet 12/27/17 Unknown Rx [Fioricet] Famotidine [Pepcid] 20 mg PO BID #30 tablet 12/27/17 Unknown Rx Nicotine [Habitrol] 21 mg TD DAILY 30 Days patch 12/27/17 Unknown Rx Butalb/Acetamin/Caff 50-325-40 1 tab PO Q6HR PRN #10 tab 01/11/18 Unknown Rx [Fioricet] ED Review of Systems ROS: Stated complaint: DEPRESSION SUICIDAL Other details as noted in HPI Constitutional: no symptoms reported Eyes: denies: eye pain ENT: denies: throat pain Respiratory: no symptoms reported Cardiovascular: denies: chest pain Endocrine: no symptoms reported Gastrointestinal: denies: abdominal pain Psychiatric: suicidal thoughts Physical Exam - Physical Exam Vital Signs: Vital Signs 01/12/18 01/12/18 03:43 04:06 Temperature 98 F 98.1 F Pulse Rate 55 L 62 Respiratory 16 16 Rate Blood Pressure 125/72 Blood Pressure 124/81 [Left] O2 Sat by Pulse 98 100 Oximetry Physical Exam: GENERAL: The patient is well-developed well-nourished female lying on stretcher not appearing to be in acute distress. [] HEENT: Normocephalic. Atraumatic. Extraocular motions are intact. Patient has moist mucous membranes. NECK: Supple. Trachea midline CHEST/LUNGS: Clear to auscultation. There is no respiratory distress noted. HEART/CARDIOVASCULAR: Regular. There is no tachycardia. There is no gallop rub or murmur. ABDOMEN: Abdomen is soft, nontender. Patient has normal bowel sounds. There is no abdominal distention. SKIN: There is no rash. There is no edema. There is no diaphoresis. NEURO: The patient is awake, alert, and oriented. The patient is cooperative. The patient has no focal neurologic deficits. The patient has normal speech MUSCULOSKELETAL: There is no evidence of acute injury. ED Course Vital Signs 01/12/18 01/12/18 03:43 04:06 Temperature 98 F 98.1 F Pulse Rate 55 L 62 Respiratory 16 16 Rate Blood Pressure 125/72 Blood Pressure 124/81 [Left] O2 Sat by Pulse 98 100 Oximetry ED Medical Decision Making - Lab Data Result diagrams: 01/12/18 08:08 01/12/18 03:55 Laboratory Tests 01/12/18 01/12/18 01/12/18 03:55 03:55 03:55 WBC RBC Hgb Hct MCV MCH MCHC RDW Plt Count Lymph % (Auto) [place] % (Auto) Eos % (Auto) Baso % (Auto) Lymph # [place] # Eos # Baso # Seg Neutrophils % Seg Neutrophils # Sodium 139 Potassium 4.0 Chloride 102.3 Carbon Dioxide 22 Anion Gap 19 BUN 9 Creatinine 0.9 Estimated GFR > 60 BUN/Creatinine Ratio 10 Glucose 89 Calcium 9.5 HCG, Qual Salicylates < 0.3 L Acetaminophen < 5.0 L Plasma/Serum Alcohol 01/12/18 01/12/18 01/12/18 03:55 03:55 08:08 WBC 5.8 RBC 4.59 Hgb 13.0 Hct 38.1 MCV 83 MCH 28 MCHC 34 RDW 14.7 Plt Count 244 Lymph % (Auto) 43.3 H [place] % (Auto) 8.2 H Eos % (Auto) 3.3 Baso % (Auto) 0.9 Lymph # 2.5 [place] # 0.5 Eos # 0.2 Baso # 0.1 Seg Neutrophils % 44.3 Seg Neutrophils # 2.6 Sodium Potassium Chloride Carbon Dioxide Anion Gap BUN Creatinine Estimated GFR BUN/Creatinine Ratio Glucose Calcium HCG, Qual Negative Salicylates Acetaminophen Plasma/Serum Alcohol < 0.01 - Differential Diagnosis suicidal ideation, grief Critical care attestation.: If time is entered above; I have spent that time in minutes in the direct care of this critically ill patient, excluding procedure time. ED Disposition Clinical Impression: Suicidal ideation Disposition: DC/TX-65 PSY HOSP/PSY UNIT Is pt being admited?: No Does the pt Need Aspirin: No Condition: Serious Referrals: PRIMARY CARE, [Primary Care Provider] - 3-5 Days Time of Disposition: 07:41 (awaiting acceptance)
[2018-01-12 08:22] LABS: Basophils # (Auto) 0.1 K/mm3 (0.0-0.1); Basophils % (Auto) 0.9 % (0.0-1.8); Eosinophils # (Auto) 0.2 K/mm3 (0.0-0.4); Eosinophils % (Auto) 3.3 % (0.0-4.3); Hematocrit 38.1 % (30.3-42.9); Lymphocytes # (Auto) 2.5 K/mm3 (1.2-5.4); Lymphocytes % (Auto) 43.3 % (13.4-35.0); Mean Corpuscular HGB Conc 34 % (30-34); Mean Corpuscular Hemoglobin 28 pg (28-32); Mean Corpuscular Volume 83 fl (79-97); Monocytes # (Auto) 0.5 K/mm3 (0.0-0.8); Monocytes % (Auto) 8.2 % (0.0-7.3); Platelet Count 244 K/mm3 (140-440); Red Blood Count 4.59 M/mm3 (3.65-5.03); Red Cell Distribution Width 14.7 % (13.2-15.2)
[2018-01-12 11:10] LABS: Bilirubin,Urine NEG (Negative); Blood,Urine NEG (Negative); Color,Urine Yellow (Yellow); Mucus,Urine 3+ /HPF; Protein,Urine <15 mg/dL mg/dL (Negative); RBC,Urine < 1.0 /HPF (0.0-6.0); Urobilinogen,Urine < 2.0 mg/dL (<2.0)
[2018-01-12 11:23] LABS: Amphetamine Screen,Urine PRESUMPTIVE NEGATIVE; Benzodiazepines Screen,Urine PRESUMPTIVE NEGATIVE; Cannabinoid Screen,Urine PRESUMPTIVE NEGATIVE; Cocaine Screen,Urine PRESUMPTIVE NEGATIVE; Methadone Screen,Urine PRESUMPTIVE NEGATIVE; Opiate Screen,Urine PRESUMPTIVE NEGATIVE
--- NOTE | 2018-01-12 17:43 | Consultation ---
History of Present Illness - Reason for Consult Consult date: 01/12/18 Reason for consult: Initial Psychiatric Evaluation - Chief Complaint Chief complaint: " depression" Medications and Allergies Allergies Allergy/AdvReac Type Severity Reaction Status Date / Time Sulfa (Sulfonamide Allergy Shortness Verified 08/21/17 11:36 Antibiotics) of Breath sulfamethoxazole Allergy Unknown Verified 12/25/17 23:42 [From Bactrim] trimethoprim [From Bactrim] Allergy Unknown Verified 12/25/17 23:42 Home Medications Medication Instructions Recorded Confirmed Last Taken Type AtorvaSTATin [Lipitor] 40 mg PO QHS #30 tablet 12/27/17 Unknown Rx Butalb/Acetamin/Caff 50-325-40 1 tab PO Q4H PRN #20 tablet 12/27/17 Unknown Rx [Fioricet] Famotidine [Pepcid] 20 mg PO BID #30 tablet 12/27/17 Unknown Rx Nicotine [Habitrol] 21 mg TD DAILY 30 Days patch 12/27/17 Unknown Rx Butalb/Acetamin/Caff 50-325-40 1 tab PO Q6HR PRN #10 tab 01/11/18 Unknown Rx [Fioricet] Mental Status Exam - Vital signs Last Vital Signs Temp 98 F 01/12/18 09:44 Pulse 87 01/12/18 09:44 Resp 17 01/12/18 09:44 BP 118/78 01/12/18 09:44 Pulse Ox 100 01/12/18 09:44 Results Result Diagrams: 01/12/18 08:08 01/12/18 03:55 Abnormal lab results 01/12/18 01/12/18 01/12/18 Range/Units 03:55 03:55 08:08 Lymph % (Auto) 43.3 H (13.4-35.0) % [place] % (Auto) 8.2 H (0.0-7.3) % Salicylates < 0.3 L (2.8-20.0) mg/dL Acetaminophen < 5.0 L (10.0-30.0) ug/mL All other labs normal.
[2018-01-12 21:36] VITALS: BP 122/82
== END 2018-01-13 03:16 ==
LOC: EEVIPCON 01:02 → ED 01:02
DX: F31.9 Bipolar disorder, unspecified (principal); I10 Essential (primary) hypertension; G43.909 Migraine, unspecified, not intractable, without status migrainosus; F17.200 Nicotine dependence, unspecified, uncomplicated; Z86.73 Personal history of transient ischemic attack (TIA), and cerebral infarction without residual deficits
CPT/HCPCS: 36415; 80048; 80307; 81001; 84703; 85025; 99285; G0480; 80320